=== PATIENT | male | born 1995 | race Caucasian/White ===

== ENCOUNTER 2024-12-22 19:20 | Emergency (ER) | payer OTHER ==
[2024-12-22] MEDS: Acetaminophen/HYDROcodone 325-10 MG Tab PO ONE (20:06)
[2024-12-22] MEDS: Take Home: Acetaminophen/HYDROcodone 325-5 MG, 5 Tab Pack PO ONE (20:38)
[2024-12-22] MEDS: Take Home: Cephalexin 500 MG Cap, 6 Cap Pack PO ONE (20:38)
[2024-12-22] MEDS ORDERED: Bacitracin Oint 1 GM U/D Packet ONE (20:54)
== END 2024-12-22 20:55 | disposition home or self-care (01) ==
LOC: DL.ED 19:20
DX: S91.102A Unspecified open wound of left great toe without damage to nail, initial encounter (principal); W22.8XXA Striking against or struck by other objects, initial encounter; Y93.89 Activity, other specified
CPT/HCPCS: 73660-TA; 99283; A9270-GY